=== PATIENT | male | born 1975 | race American Indian/Alaskan Native ===

== ENCOUNTER 2020-08-15 10:13 | Inpatient (IN) | payer OTHER, SELFPAY ==
[2020-08-15] MEDS ORDERED: ALBUTEROL 2.5 MG/3 ML NEBU IH ONE ×5 (10:37→14:20)
[2020-08-15] MEDS ORDERED: IPRATROPIUM 0.02% NEBU 2.5 ML IH ONE (10:37)
[2020-08-15] MEDS ORDERED: dexAMETHasone 20 MG/5 ML VIAL IV ONE (10:37)
[2020-08-15] MEDS ORDERED: MAGNESIUM SULFATE 2 GM/50 ML BAG IV ONE (10:37)
--- NOTE | 2020-08-15 10:42 | Emergency Department Report ---
ED Shortness of Breath HPI - General Chief Complaint: Adult Asthma Stated Complaint: CHEST CONGESTION/FLU SX Time Seen by Provider: 08/15/20 10:37 Source: patient, EMS Mode of arrival: Wheelchair Limitations: No Limitations - History of Present Illness Initial Comments: The patient was evaluated in the emergency department for symptoms described in the history of present illness. He/she was evaluated in the context of the global COVID-19 pandemic, which necessitated consideration that the patient might be at risk for infection with the virus that causes COVID-19. Institutional protocols and algorithms that pertain to the evaluation of patients at risk for COVID-19 are in a state of rapid change based on information released by regulatory bodies including the CDC and federal and state organizations. These policies and algorithms were followed during the patient's care in the emergency department. Please note that these policies, procedures and recommendations changed on a rapid basis. 44-year-old -Slovenian male presents to the emergency room complaining of a sore throat for 4 days. Patient states that he has tried nidp-fqb-[id number] TheraFlu and Cheli-[place] plus with no relief. He does admit to fever decreased appetite nausea vomiting and a mild upset stomach. Patient states he has decreased appetite. Denies any sick contact. Denies any chest pain shortness of breathing headache. Patient denies any past medical history takes no medications on a daily basis and has no known drug allergies. Patient reports he has been hospitalized for his asthma. He also endorsed that he had had an arrhythmia at his last hospital visit and was reported had fluid around his heart per patient. MD Complaint: shortness of breath, cough, "asthma attack" Onset/Timin -: days(s) Improves With: nothing Worsens With: lying flat Known History Of: asthma Associated Symptoms: cough, sputum production Treatments Prior to Arrival: bronchodilator - Related Data Home Oxygen Therapy: No Allergies Allergy/AdvReac Type Severity Reaction Status Date / Time shellfish derived Allergy Itching Verified 08/15/20 14:26 ED Review of Systems ROS: Stated complaint: CHEST CONGESTION/FLU SX Other details as noted in HPI Comment: All other systems reviewed and negative ED Past Medical Hx - Past Medical History Previous Medical History?: Yes Hx Asthma: Yes - Surgical History Past Surgical History?: No - Social History Smoking Status: Current Every Day Smoker Substance Use Type: Alcohol ED Physical Exam - General Limitations: No Limitations General appearance: alert, in distress - Head Head exam: Present: atraumatic, normocephalic - Eye Eye exam: Present: normal appearance - ENT ENT exam: Present: mucous membranes moist - Neck Neck exam: Present: normal inspection, full ROM - Respiratory Respiratory exam: Present: respiratory distress, rhonchi, accessory muscle use - Cardiovascular Cardiovascular Exam: Present: regular rate - GI/Abdominal GI/Abdominal exam: Present: soft. Absent: distended, tenderness - Extremities Exam Extremities exam: Present: full ROM - Back Exam Back exam: Present: full ROM - Neurological Exam Neurological exam: Present: alert, oriented X3, normal gait - Psychiatric Psychiatric exam: Present: normal affect, normal mood - Skin Skin exam: Present: warm, dry, intact, normal color. Absent: rash ED Course Vital Signs 08/15/20 10:30 Temperature 98.0 F Pulse Rate 97 H Respiratory 20 Rate Blood Pressure 115/78 O2 Sat by Pulse 97 Oximetry - Reevaluation(s) Reevaluation #1: 08/15/20 12:02 Dr. Enrico Carpenter came to evaluate patient. He recommends another 7.5 mg of albuterol and admission. Spoke to Dr. Sosa hospitalist is aware of admission request. ED Medical Decision Making - Lab Data Result diagrams: 08/15/20 12:09 08/15/20 12:09 - Radiology Data Radiology results: report reviewed [facility] [address] [place] [address] XRay Report Signed Patient: BELINDA DELANEY MR#: [id number] 2 : 1975 Acct:[id number] Age/Sex: 44 / M ADM Date: 08/15/20 Loc: ED Attending Dr: Ordering Physician: ABHINAV STONE Date of Service: 08/15/20 Procedure(s): XR chest 1V ap Accession Number(s): [id number] cc: ABHINAV STONE Fluoro Time In Minutes: XR chest 1V ap INDICATION / CLINICAL INFORMATION: sob COMPARISON: None available. FINDINGS: SUPPORT DEVICES: None. HEART / MEDIASTINUM: No significant abnormality. LUNGS / PLEURA: Lungs are clear. Costophrenic sulci are sharp. No pneumothorax. ADDITIONAL FINDINGS: No significant additional findings. IMPRESSION: 1. No acute findings. Signer Name: Atul Chou MD Signed: 08/15/2020 11:31 AM Workstation Name: [id number] Transcribed By: CS Dictated By: Atul Chou MD Electronically Authenticated By: Atul Chou MD Signed Date/Time: 08/15/201130 DD/ 30 TD/TT: - Medical Decision Making 44-year-old -Slovenian male presents to the emergency room complaining of a sore throat for 4 days. Patient states that he has tried vbsh-eqe-[id number] TheraFlu and Cheli-[place] plus with no relief. He does admit to fever decreased appetite nausea vomiting and a mild upset stomach. Patient states he has decreased appetite. Denies any sick contact. Denies any chest pain shortness of breathing headache. Patient denies any past medical history takes no medications on a daily basis and has no known drug allergies. Patient reports he has been hospitalized for his asthma. He also endorsed that he had had an arrhythmia at his last hospital visit and was reported had fluid around his heart per patient. Patient was brought directly back from triage placed in room 35 initial orders were albuterol 7.5 mg inhalation, Atrovent 1 mg inhalation, normal saline 1 L magnesium 2 mg dexamethasone 10 mg IV and chest x-ray was ordered. This provider reevaluated patient he still sounds rhonchorous and wheezing still appears to be in distress. Inform Dr. Carpenter ER attending of my concerns he came over immediately evaluated patient reports to give him another 7.5 mg of albuterol and admit the patient for evaluation and continuous treatment. Spoke to Dr. Carroll informed him of my admission. Critical care attestation.: If time is entered above; I have spent that time in minutes in the direct care of this critically ill patient, excluding procedure time. ED Disposition Clinical Impression: Asthma exacerbation Disposition: OP ADMIT IP TO THIS HOSP Is pt being admited?: Yes Does the pt Need Aspirin: Yes Condition: Stable Instructions: Asthma (ED)
--- NOTE | 2020-08-15 11:36 | XRay Report ---
XR chest 1V ap INDICATION / CLINICAL INFORMATION: sob COMPARISON: None available. FINDINGS: SUPPORT DEVICES: None. HEART / MEDIASTINUM: No significant abnormality. LUNGS / PLEURA: Lungs are clear. Costophrenic sulci are sharp. No pneumothorax. ADDITIONAL FINDINGS: No significant additional findings. IMPRESSION: 1. No acute findings. Signer Name: Atul Chou MD Signed: 08/15/2020 11:31 AM Workstation Name: [id number]
--- NOTE | 2020-08-15 12:01 | Event Note ---
Face to Face: For this encounter I have reviewed the PA/ATTENDANT [employer] documentation, treatment plan, medical decision making, and I had face to face time with this patient. Patient is a 44-year-old F Irish male with a history of asthma who is presenting with cough shortness of breath. Chest x-ray is within normal limits however after hour-long neb treatment with steroid and magnesium patient still in some mild respiratory distress. Patient is continued to wheeze patient appears to warrant admission to the hospital
[2020-08-15 12:32] LABS: Basophils # (Auto) 0.1 K/mm3 (0.0-0.1); Basophils % (Auto) 0.6 % (0.0-1.8); Eosinophils # (Auto) 0.2 K/mm3 (0.0-0.4); Eosinophils % (Auto) 1.9 % (0.0-4.3); Hematocrit 39.2 % (35.5-45.6); Hemoglobin 13.6 gm/dl (11.8-15.2); Lymphocytes # (Auto) 1.8 K/mm3 (1.2-5.4); Lymphocytes % (Auto) 14.3 % (13.4-35.0); Mean Corpuscular HGB Conc 35 % (32-34); Mean Corpuscular Volume 81 fl (84-94); Monocytes # (Auto) 0.6 K/mm3 (0.0-0.8); Platelet Count 264 K/mm3 (140-440); Red Blood Count 4.83 M/mm3 (3.65-5.03); Red Cell Distribution Width 14.3 % (13.2-15.2)
[2020-08-15 13:02] LABS: BUN/Creatinine Ratio 11; Blood Urea Nitrogen 9 mg/dL (9-20); Calcium 9.1 mg/dL (8.4-10.2); Hemolysis Index 3
[2020-08-15] MEDS ORDERED: ASPIRIN 81 MG TAB CHEW PO ONE (15:17)
--- NOTE | 2020-08-15 23:02 | History and Physical Report ---
History of Present Illness Date of examination: 08/15/20 Date of admission: 08/15/20 15:44 Chief complaint: Shortness of breath and wheezing for 4 days History of present illness: 44-year-old -[place] male with history of asthma comes in for sore throat of 4 days duration. Patient developed [id number] TheraFlu and Cheli-[place] with no relief. Patient also had a fever and decreased appetite nausea vomiting and epigastric discomfort. Patient also comes in for increasing shortness of breath and wheezing not responding to inhalers and bronchodilators. Continues to have a lot of wheezing. In the emergency room patient was initially hypoxic patient was given multiple nebulizer treatments and IV magnesium and IV steroids with no relief. Hence patient being admitted to the hospital for observation status. No exposure to coronavirus. - Past Medical History Previous Medical History?: Yes -- Asthma: Yes - Surgical History Past Surgical History?: No - Social History Smoking Status: Current Every Day Smoker Substance Use Type: Alcohol Family history Htn Review of Systems ROS: Constitutional no weight loss or weight gain no fever or chills HEENT sore throat for 4 days and fever Neck no neck stiffness no lymph gland enlargement Chest and lungs chest congestion and wheezing for 4 days CVS no chest pain no diaphoresis no palpitations GI no nausea no vomiting no diarrhea Genitourinary system no dysuria no flank pain Musculoskeletal system no muscle pains no joint pains [employer] no syncope no seizures Skin no rash no itching Psychiatric no depression no homicidal or suicidal tendencies Hematologic no lymphedema or bruising Endocrine no polydipsia no polyuria no cold intolerance no heat intolerance Medications and Allergies Allergies Allergy/AdvReac Type Severity Reaction Status Date / Time shellfish derived Allergy Itching Verified 08/15/20 14:26 Home Medications Medication Instructions Recorded Confirmed Last Taken Type No Known Home Medications [No 08/15/20 08/15/20 Unknown History Reported Home Medications] Exam - Constitutional Vitals: Temp Pulse Resp BP Pulse Ox 98.2 F 88 20 122/76 97 08/15/20 15:46 08/15/20 15:46 08/15/20 15:47 08/15/20 15:46 08/15/20 15:47 General appearance: Present: severe distress, well-nourished - EENT Eyes: Present: PERRL ENT: hearing intact, clear oral mucosa - Neck Neck: Present: supple, normal ROM - Respiratory Respiratory effort: normal Respiratory: bilateral: diminished, rhonchi, wheezing - Cardiovascular Rhythm: regular Heart Sounds: Present: S1 & S2. Absent: rub, click - Extremities Extremities: pulses symmetrical, No edema Peripheral Pulses: within normal limits - Abdominal General gastrointestinal: Present: soft, non-tender, non-distended, normal bowel sounds Male genitourinary: Present: normal - Rectal Rectal Exam: deferred - Integumentary Integumentary: Present: clear, warm, dry - Musculoskeletal Musculoskeletal: gait normal, strength equal bilaterally - Psychiatric Psychiatric: appropriate mood/affect, intact judgment & insight - Neurologic Neurologic: CNII-XII intact, moves all extremities - Allied Health Allied health notes reviewed: nursing, case management HEART Score - HEART Score History: Slightly suspicious EKG: Non-specific Age: < 45 Risk factors: No known risk factors Troponin: < normal limit HEART Score: 1 - Critical Actions Critical Actions: 0-3 pts:0.9-1.7%risk of adverse cardiac event.Candidate for discharge Results - Labs CBC & Chem 7: 08/15/20 12:09 08/15/20 12:09 Labs: Laboratory Last Values WBC 12.5 K/mm3 (4.5-11.0) H 08/15/20 12:09 RBC 4.83 M/mm3 (3.65-5.03) 08/15/20 12:09 Hgb 13.6 gm/dl (11.8-15.2) 08/15/20 12:09 Hct 39.2 % (35.5-45.6) 08/15/20 12:09 MCV 81 fl (84-94) L 08/15/20 12:09 MCH 28 pg (28-32) 08/15/20 12:09 MCHC 35 % (32-34) H 08/15/20 12:09 RDW 14.3 % (13.2-15.2) 08/15/20 12:09 Plt Count 264 K/mm3 (140-440) 08/15/20 12:09 Lymph % (Auto) 14.3 % (13.4-35.0) 08/15/20 12:09 [place] % (Auto) 5.0 % (0.0-7.3) 08/15/20 12:09 Eos % (Auto) 1.9 % (0.0-4.3) 08/15/20 12:09 Baso % (Auto) 0.6 % (0.0-1.8) 08/15/20 12:09 Lymph # (Auto) 1.8 K/mm3 (1.2-5.4) 08/15/20 12:09 [place] # (Auto) 0.6 K/mm3 (0.0-0.8) 08/15/20 12:09 Eos # (Auto) 0.2 K/mm3 (0.0-0.4) 08/15/20 12:09 Baso # (Auto) 0.1 K/mm3 (0.0-0.1) 08/15/20 12:09 Seg Neutrophils % 78.2 % (40.0-70.0) H 08/15/20 12:09 Seg Neutrophils # 9.8 K/mm3 (1.8-7.7) H 08/15/20 12:09 D-Dimer < 135 ng/mlDDU (0-234) 08/15/20 12:09 Sodium 137 mmol/L (137-145) 08/15/20 12:09 Potassium 4.0 mmol/L (3.6-5.0) 08/15/20 12:09 Chloride 97.8 mmol/L (98-107) L 08/15/20 12:09 Carbon Dioxide 26 mmol/L (22-30) 08/15/20 12:09 Anion Gap 17 mmol/L 08/15/20 12:09 BUN 9 mg/dL (9-20) 08/15/20 12:09 Creatinine 0.8 mg/dL (0.8-1.3) 08/15/20 12:09 Estimated GFR > 60 ml/min 08/15/20 12:09 BUN/Creatinine Ratio 11 % 08/15/20 12:09 Glucose 86 mg/dL (75-100) 08/15/20 12:09 Calcium 9.1 mg/dL (8.4-10.2) 08/15/20 12:09 Ferritin 83.0 ng/mL (30.0-300.0) 08/15/20 12:09 Lactate Dehydrogenase 140 units/L (91-180) 08/15/20 12:09 C-Reactive Protein 1.40 mg/dL (0.00-1.30) H 08/15/20 12:09 Procalcitonin < 0.05 ng/mL (<0.15) 08/15/20 12:09 - Imaging and Cardiology Chest x-ray: report reviewed (No acute findings) Rogers/IV: IV Catheter Type [Left INT / Saline Lock Antecubital] Assessment and Plan Advance Directives: Yes Plan of care discussed with patient/family: Yes (Full code) - Patient Problems (1) Acute respiratory failure with hypoxia Current Visit: Yes Status: Acute Plan to address problem: Continue BiPAP and nasal cannula oxygen as necessary Intubated necessary Duo nebs [id number] and every 3 as needed IV Solu-Medrol at 60 mg daily 8 hours Pulmicort inhalations twice a day Pulmonary consult if necessary IV Levaquin as empiric antibiotics Coronavirus to be screened (2) Asthma exacerbation Current Visit: Yes Status: Acute Qualifiers: Asthma severity: severe Plan to address problem: Continue IV Solu-Medrol, IV Levaquin and nebulizer treatments [id number] and every 3 as needed BiPAP as necessary Intubate if necessary (3) DVT prophylaxis Current Visit: Yes Status: Acute Plan to address problem: On Lovenox and GI prophylaxis
[2020-08-15] MEDS ORDERED: ACETAMINOPHEN 325 MG TAB PO PRN (23:05)
[2020-08-15] MEDS ORDERED: ONDANSETRON 4 MG/2 ML INJ IV PRN (23:05)
[2020-08-15] MEDS ORDERED: HYDROmorphone 1 MG/1 ML INJ IV PRN (23:05)
[2020-08-15] MEDS ORDERED: IPRATROPIUM/ALBUTEROL SULFATE 3 ML AMPUL.NEB IH PRN (23:07)
[2020-08-15] MEDS ORDERED: ALBUTEROL 2.5 MG/3 ML NEBU IH PRN (23:16)
[2020-08-16] MEDS: BUDESONIDE 0.5 MG/2 ML NEBU IH SCH ×3 (00:27→21:03)
[2020-08-16] MEDS: methylPREDNISolone Sod Succinate 125 MG/2 ML INJ IV SCH ×4 (01:42→21:45)
[2020-08-16] MEDS: FAMOTIDINE 20 MG/2 ML INJ IV SCH ×3 (01:42→21:45)
--- NOTE | 2020-08-16 07:44 | Progress Note ---
Subjective Date of service: 08/16/20 Interval history: Shortness of breath and wheezing for 4 days History of present illness: 44-year-old -Citizen Of [place] male with history of asthma comes in for sore throat of 4 days duration. Patient tried funq-dok-xvpupar TheraFlu and Cheli[place] with no relief. Patient also had a fever and decreased appetite nausea vomiting and epigastric discomfort. Patient also comes in for increasing shortness of breath and wheezing not responding to inhalers and bronchodilators. Continues to have a lot of wheezing. In the emergency room patient was initial ly hypoxic patient was given multiple nebulizer treatments and IV magnesium and IV steroids with no relief. Hence patient being admitted to the hospital for observation status. No exposure to coronavirus. 08/16 patient is ill looking, mildly short of breath, he denies any chest pain. Denies nausea or abdominal pain or dysuria. Lab results reviewed. Chest x-ray reviewed Assessment and plan Acute asthma exacerbation Continues to have bilateral scattered rhonchi and he is mildly short of breath Continue aggressive neb treatments Add arformoterol via nebulizer Change DuoNeb solution to every 4 hours Decrease IV steroids to 40 mg every 8 hours Chest x-ray reviewed We will discontinue levofloxacin (to avoid tendon rupture as the patient is also on steroids) and start the patient on ceftriaxone x3 days Acute hypoxic respiratory failure Secondary to #1 Continue oxygen via nasal cannula O2 saturation is greater than 96% Covid test ordered and performed this morning Results pending D-dimer, CRP, LDH and ferritin are in the normal range Chest x-ray shows no acute infiltrates Leukocytosis Likely reactive Improved Tobacco abuse Smoking cessation counseling was done Objective - Constitutional Vitals: Vital Signs - 12hr 08/15/20 08/16/20 21:08 05:36 Temperature 98.6 F Pulse Rate 97 H 93 H Respiratory 18 Rate Blood Pressure 115/80 148/86 O2 Sat by Pulse 97 96 Oximetry General appearance: Present: no acute distress - EENT Eyes: PERRL, EOM intact ENT: hearing intact, clear oral mucosa - Neck Neck: supple, normal ROM, no masses or JVD - Respiratory Respiratory effort: normal Respiratory: bilateral: diminished, rhonchi - Cardiovascular Rhythm: regular Heart Sounds: Present: S1 & S2 Extremities: No edema - Gastrointestinal General gastrointestinal: Present: soft, non-tender. Absent: hepatomegaly, splenomegaly Rectal Exam: deferred - Genitourinary Male genitourinary: deferred - Integumentary Integumentary: clear - Musculoskeletal Musculoskeletal: strength equal bilaterally - Neurologic Neurologic: no focal deficits - Psychiatric Psychiatric: appropriate mood/affect - Labs CBC & Chem 7: 08/16/20 10:08 08/16/20 10:08 Labs: Abnormal lab results 08/15/20 08/15/20 Range/Units 12:09 12:09 WBC 12.5 H (4.5-11.0) K/mm3 MCV 81 L (84-94) fl MCHC 35 H (32-34) % Seg Neutrophils % 78.2 H (40.0-70.0) % Seg Neutrophils # 9.8 H (1.8-7.7) K/mm3 Chloride 97.8 L (98-107) mmol/L C-Reactive Protein 1.40 H (0.00-1.30) mg/dL HEART Score - HEART Score EKG: Non-specific Age: < 45 Risk factors: No known risk factors Troponin: < normal limit - Critical Actions Critical Actions: 0-3 pts:0.9-1.7%risk of adverse cardiac event.Candidate for discharge
[2020-08-16] MEDS ORDERED: IPRATROPIUM/ALBUTEROL SULFATE 3 ML AMPUL.NEB IH SCH (08:00)
[2020-08-16 10:53] LABS: Basophils % (Auto) 0.1 % (0.0-1.8); Eosinophils % (Auto) 0.1 % (0.0-4.3); Hematocrit 44.5 % (35.5-45.6); Hemoglobin 14.5 gm/dl (11.8-15.2); Lymphocytes # (Auto) 1.5 K/mm3 (1.2-5.4); Lymphocytes % (Auto) 14.7 % (13.4-35.0); Mean Corpuscular HGB Conc 33 % (32-34); Mean Corpuscular Volume 83 fl (84-94); Monocytes # (Auto) 0.2 K/mm3 (0.0-0.8); Monocytes % (Auto) 1.7 % (0.0-7.3); Platelet Count 303 K/mm3 (140-440); Red Blood Count 5.35 M/mm3 (3.65-5.03); Red Cell Distribution Width 14.6 % (13.2-15.2)
[2020-08-16 11:09] LABS: Alanine Aminotransferase 15 units/L (7-56); Albumin 4.6 g/dL (3.9-5); BUN/Creatinine Ratio 16; Blood Urea Nitrogen 16 mg/dL (9-20); Calcium 9.9 mg/dL (8.4-10.2); Hemolysis Index 28
[2020-08-16] MEDS: IPRATROPIUM/ALBUTEROL SULFATE 3 ML AMPUL.NEB IH SCH ×4 (12:21→21:03)
[2020-08-16] MEDS: ENOXAPARIN 40 MG/0.4 ML INJ SUB-Q SCH (21:44)
[2020-08-17] MEDS: IPRATROPIUM/ALBUTEROL SULFATE 3 ML AMPUL.NEB IH SCH ×6 (00:34→21:12)
[2020-08-17] MEDS: methylPREDNISolone Sod Succinate 125 MG/2 ML INJ IV SCH ×3 (06:18→21:51)
[2020-08-17] MEDS: BUDESONIDE 0.5 MG/2 ML NEBU IH SCH ×2 (09:16→21:12)
[2020-08-17] MEDS: guaiFENesin DM 200/20 MG ORAL LIQD 10 ML PO SCH ×3 (10:52→23:08)
[2020-08-17] MEDS: MONTELUKAST 10 MG TAB PO SCH (10:55)
[2020-08-17] MEDS: cefTRIAXone/NS 1 GM/50 ML 1 GM/50 ML BAG IV SCH (10:55)
[2020-08-17] MEDS: FAMOTIDINE 20 MG/2 ML INJ IV SCH (10:56)
[2020-08-17] MEDS ORDERED: BUDESONIDE 0.5 MG/2 ML NEBU IH SCH (11:00)
[2020-08-17] MEDS ORDERED: MONTELUKAST 10 MG TAB PO SCH (11:00)
[2020-08-17] MEDS: ARFORMOTEROL 15 MCG/2 ML NEBU IH SCH ×2 (11:56→21:13)
--- NOTE | 2020-08-17 12:43 | Consultation ---
History of Present Illness Consult date: 08/17/20 Consult reason: shortness of breath, other (Abnormal ECG) History of present illness: Patient is a 44-year-old man admitted to the hospital 2 days ago with complaints of shortness of breath, cough and wheezing. His symptoms have been attributed to exacerbation of his chronic asthma. Today, an ECG was done ostensibly due to his persistent symptoms, and cardiac consultation was requested for the abnormalities on the ECG. There is a sinus rhythm at 99, with diffuse concave appearance ST elevation in all the leads except aVR. ECG has the appearance of acute pericarditis. The patient is afebrile, comfortable in his room on the medical floor, but is actively coughing. He denies chest pain, except when he coughs. There are no palpitations, no lower extremity edema. He has no prior cardiac history. Chest x-ray done on this presentation revealed underlying prominence and cardiac silhouette, but otherwise clear lungs with no infiltrate and no edema. COVID-19 test was negative. Past History Past Medical History: other (Asthma) Medications and Allergies Allergies Allergy/AdvReac Type Severity Reaction Status Date / Time shellfish derived Allergy Itching Verified 08/15/20 14:26 Home Medications Medication Instructions Recorded Confirmed Last Taken Type No Known Home Medications [No 08/15/20 08/15/20 Unknown History Reported Home Medications] Active Meds: Active Medications Acetaminophen (Tylenol) 650 mg PO Q4H PRN PRN Reason: Pain MILD(1-3)/Fever >100.5/NAIR Albuterol (Proventil) 2.5 mg IH Q3HRT PRN PRN Reason: Wheezing Albuterol/Ipratropium (Duoneb *Not For Prn Use*) 1 ampul IH Q4H [facility] Last Admin: 08/17/20 12:30 Dose: 1 ampul Documented by: Arformoterol Tartrate (Brovana Nebu) 15 mcg IH Q12HRT [facility] Last Admin: 08/17/20 11:56 Dose: Not Given Documented by: Budesonide (Pulmicort) 0.5 mg IH Q12HRT [facility] Last Admin: 08/17/20 09:16 Dose: 0.5 mg Documented by: Enoxaparin Sodium (Enoxaparin) 40 mg SUB-Q QDAY@2200 GIULIANA; Protocol Last Admin: 08/16/20 21:44 Dose: 40 mg Documented by: Famotidine (Pepcid) 20 mg PO BID [facility] Guaifenesin (Guaifenesin Dm Syrup) 10 ml PO Q6HR [facility] Last Admin: 08/17/20 10:52 Dose: 10 ml Documented by: Hydromorphone HCl (Dilaudid) 0.5 mg IV Q3H PRN PRN Reason: Pain , Severe (7-10) Ceftriaxone Sodium (Rocephin/Ns 1 Gm/50 Ml) 1 gm in 50 mls @ 100 mls/hr IV Q24HR [facility]; Protocol Stop: 08/19/20 12:00 Last Admin: 08/17/20 10:55 Dose: 100 mls/hr Documented by: Methylprednisolone Sodium Succinate (Solu-Medrol) 40 mg IV Q8HR [facility] Last Admin: 08/17/20 06:18 Dose: 40 mg Documented by: Montelukast Sodium (Singulair) 10 mg PO QPM [facility] Last Admin: 08/17/20 10:55 Dose: 10 mg Documented by: Ondansetron HCl (Zofran) 4 mg IV Q3H PRN PRN Reason: Nausea And Vomiting Oxycodone/Acetaminophen (Percocet 5/325) 1 tab PO Q6H PRN PRN Reason: Pain, Moderate (4-6) Sodium Chloride (Sodium Chloride Flush Syringe 10 Ml) 10 ml IV BID [facility] Last Admin: 08/17/20 10:56 Dose: 10 ml Documented by: Sodium Chloride (Sodium Chloride Flush Syringe 10 Ml) 10 ml IV PRN PRN PRN Reason: LINE FLUSH Review of Systems Cardiovascular: chest pain, shortness of breath, no orthopnea, no palpitations, no rapid/irregular heart beat, no edema, no syncope, no lightheadedness Respiratory: cough Physical Examination Vital Signs Temp Pulse Resp BP Pulse Ox 98.0 F 97 H 20 115/78 97 08/15/20 10:30 08/15/20 10:30 08/15/20 10:30 08/15/20 10:30 08/15/20 10:30 General appearance: no acute distress HEENT: Positive: PERRL Neck: Positive: neck supple Cardiac: Positive: Reg Rate and Rhythm Lungs: Positive: Decreased Breath Sounds Neuro: Positive: Grossly Intact Abdomen: Positive: Soft Male genitourinary: Positive: deferred Skin: Positive: Clear Extremities: Absent: edema Results 08/16/20 10:08 08/16/20 10:08 EKG interpretations - Telemetry EKG Rhythm: Sinus Rhythm Assessment and Plan - Patient Problems (1) Acute pericarditis Current Visit: Yes Status: Acute Plan to address problem: Patient has symptoms of shortness of breath, cough, bronchitis and asthma exacerbation. ECG today is very suspicious for findings of acute pericarditis. In addition to administration of NSAIDs, we will obtain an echocardiogram for left ventricular function assessment.
--- NOTE | 2020-08-17 15:45 | Progress Note ---
Subjective Date of service: 08/17/20 Interval history: Shortness of breath and wheezing for 4 days History of present illness: 44-year-old -Nigerien male with history of asthma comes in for sore throat of 4 days duration. Patient tried [id number] TheraFlu and Cheli- [place] with no relief. Patient also had a fever and decreased appetite nausea vomiting and epigastric discomfort. Patient also comes in for increasing shortness of breath and wheezing not responding to inhalers and bronchodilators. Continues to have a lot of wheezing. In the emergency room patient was initial ly hypoxic patient was given multiple nebulizer treatments and IV magnesium and IV steroids with no relief. Hence patient being admitted to the hospital for observation status. No exposure to coronavirus. 08/16 patient is ill looking, mildly short of breath, he denies any chest pain. Denies nausea or abdominal pain or dysuria. Lab results reviewed. Chest x-ray reviewed 08/17 patient is actively coughing and mildly short of breath and wheezing. His oxygen saturation on room air was 96% Cardiology consulted due to abnormal EKG and patient is suspected of having acute pericarditis Assessment and plan Acute asthma exacerbation-severe Continues to have bilateral expiratory rhonchi and he is mildly short of breath Continue aggressive neb treatments with arformoterol, budesonide and DuoNeb solution via nebulizer Continue IV steroids to 40 mg every 8 hours And montelukast Chest x-ray reviewed Continue ceftriaxone x3 days Acute hypoxic respiratory failure Secondary to #1 Continue oxygen via nasal cannula O2 saturation is greater than 96% on room air Covid test ordered and performed and is negative for Covid 19 virus D-dimer, CRP, LDH and ferritin are in the normal range Chest x-ray shows no acute infiltrates Leukocytosis Likely reactive Improved Tobacco abuse Smoking cessation counseling was done DVT prophylaxis; heparin subcu Not ready for discharge Objective - Constitutional Vitals: Vital Signs - 12hr 08/17/20 08/17/20 08/17/20 04:27 09:16 12:30 Temperature 98.1 F Pulse Rate 88 Pulse Rate [ 111 H 96 H Bilateral Throughout] Respiratory 16 Rate Respiratory 20 20 Rate [Bilateral Throughout] Blood Pressure 111/81 O2 Sat by Pulse 96 Oximetry 08/17/20 08/17/20 13:38 13:40 Temperature 98.6 F 98.6 F Pulse Rate 110 H 106 H Pulse Rate [ Bilateral Throughout] Respiratory 20 20 Rate Respiratory Rate [Bilateral Throughout] Blood Pressure 163/94 141/73 O2 Sat by Pulse 95 95 Oximetry General appearance: Present: mild distress - EENT Eyes: PERRL, EOM intact ENT: hearing intact, clear oral mucosa - Neck Neck: supple, normal ROM, no masses or JVD - Respiratory Respiratory: bilateral: rhonchi, wheezing - Cardiovascular Rhythm: regular Heart Sounds: Present: S1 & S2 Extremities: No edema - Gastrointestinal General gastrointestinal: Present: soft, non-tender Rectal Exam: deferred - Genitourinary Male genitourinary: deferred - Musculoskeletal Musculoskeletal: strength equal bilaterally - Neurologic Neurologic: no focal deficits, moves all extremities - Psychiatric Psychiatric: appropriate mood/affect - Labs CBC & Chem 7: 08/16/20 10:08 08/16/20 10:08 HEART Score - HEART Score EKG: Non-specific Age: < 45 Risk factors: No known risk factors Troponin: < normal limit - Critical Actions Critical Actions: 0-3 pts:0.9-1.7%risk of adverse cardiac event.Candidate for discharge
[2020-08-17] MEDS: INDOMETHACIN 25 MG CAP PO SCH ×2 (18:10→21:26)
[2020-08-17] MEDS: FAMOTIDINE 20 MG TAB PO SCH (21:26)
[2020-08-17] MEDS: ENOXAPARIN 40 MG/0.4 ML INJ SUB-Q SCH (21:26)
[2020-08-17] MEDS: oxyCODONE /ACETAMINOPHEN 5-325MG TAB PO PRN (21:27)
[2020-08-17] MEDS: ZOLPIDEM 5 MG TAB PO PRN (21:27)
[2020-08-18] MEDS ORDERED: methylPREDNISolone Sod Succinate 125 MG/2 ML INJ ONE ×2 (05:30→13:30)
[2020-08-18] MEDS ORDERED: ARFORMOTEROL 15 MCG/2 ML NEBU IH ONE (09:00)
[2020-08-18] MEDS ORDERED: BUDESONIDE 0.5 MG/2 ML NEBU IH ONE (09:00)
[2020-08-18] MEDS: ARFORMOTEROL 15 MCG/2 ML NEBU IH SCH ×2 (09:15→20:45)
[2020-08-18] MEDS: BUDESONIDE 0.5 MG/2 ML NEBU IH SCH ×2 (09:15→20:42)
[2020-08-18] MEDS ORDERED: guaiFENesin DM 200/20 MG ORAL LIQD 10 ML ONE (13:30)
[2020-08-18] MEDS ORDERED: MONTELUKAST 10 MG TAB ONE (13:30)
[2020-08-18] MEDS ORDERED: cefTRIAXone/NS 1 GM/50 ML IVPB IV ONE (13:30)
[2020-08-18] MEDS ORDERED: HYDROcodone/ACETAMINOPHEN 5-325 MG TAB ONE (13:30)
[2020-08-18] MEDS ORDERED: FAMOTIDINE 20 MG TAB ONE (13:30)
[2020-08-18] MEDS ORDERED: INDOMETHACIN 25 MG CAP ONE (13:30)
[2020-08-18] MEDS: IPRATROPIUM/ALBUTEROL SULFATE 3 ML AMPUL.NEB IH SCH ×6 (17:39→20:45)
--- NOTE | 2020-08-18 18:03 | Progress Note ---
Assessment and Plan - Patient Problems (1) Acute pericarditis Current Visit: Yes Status: Acute Plan to address problem: Patient has symptoms of shortness of breath, cough, bronchitis and asthma exacerbation. ECG is very suspicious for findings of acute pericarditis. Patient has been started on NSAIDs. Echocardiogram shows normal left ventricular systolic function, ejection fraction 60 to 65%, with a trivial degree of pericardial effusion. Subjective Date of service: 08/18/20 Interval history: No new cardiac complaints, patient continues to experience cough. Objective Vital Signs Temp Pulse Pulse Resp Resp BP Pulse Ox 08/18/20 08:00 106 H 17 08/17/20 22:37 98.5 F 84 18 143/84 96 08/17/20 20:00 88 16 08/17/20 18:25 98.5 F 105 H 20 159/94 97 - Physical Examination HEENT: Positive: PERRL Neck: Positive: neck supple Cardiac: Positive: Reg Rate and Rhythm Lungs: Positive: Decreased Breath Sounds Neuro: Positive: Grossly Intact Abdomen: Positive: Soft Skin: Positive: Clear Extremities: Absent: edema
[2020-08-18] MEDS: oxyCODONE /ACETAMINOPHEN 5-325MG TAB PO PRN ×2 (18:14→22:47)
[2020-08-18] MEDS: guaiFENesin DM 200/20 MG ORAL LIQD 10 ML PO SCH ×2 (18:32→18:33)
[2020-08-18] MEDS: INDOMETHACIN 25 MG CAP PO SCH ×2 (18:32→22:47)
[2020-08-18] MEDS: cefTRIAXone/NS 1 GM/50 ML 1 GM/50 ML BAG IV SCH (18:32)
[2020-08-18] MEDS: MONTELUKAST 10 MG TAB PO SCH (18:33)
[2020-08-18] MEDS: methylPREDNISolone Sod Succinate 125 MG/2 ML INJ IV SCH ×2 (18:33→22:46)
[2020-08-18] MEDS: FAMOTIDINE 20 MG TAB PO SCH ×2 (18:33→22:46)
--- NOTE | 2020-08-18 21:40 | Progress Note ---
Assessment and Plan 44-year-old -[place] male with history of asthma comes in for sore throat of 4 days duration. Patient tried [id number] TheraFlu and Cheli- [place] with no relief. Patient also had a fever and decreased appetite nausea vomiting and epigastric discomfort. Patient also comes in for increasing shortness of breath and wheezing not responding to inhalers and bronchodilators. Continues to have a lot of wheezing. In the emergency room patient was initially hypoxic patient was given multiple nebulizer treatments and IV magnes ium and IV steroids with no relief. Hence patient being admitted to the hospital for observation status. No exposure to coronavirus. Daily course: 08/16 patient is ill looking, mildly short of breath, he denies any chest pain. Denies nausea or abdominal pain or dysuria. Lab results reviewed. Chest x-ray reviewed 08/17 patient is actively coughing and mildly short of breath and wheezing. His oxygen saturation on room air was 96% Cardiology consulted due to abnormal EKG and patient is suspected of having acute pericarditis 08/18: Patient clinically improving, still have mild short of breath and wheezing. Noted cardiology commendation, started on NSAID for acute pericarditis. If continue to improve possible discharge tomorrow with outpatient follow-up. Assessment and plan --Acute asthma exacerbation-severe Continues to have bilateral expiratory rhonchi and he is mildly short of breath Continue aggressive neb treatments with arformoterol, budesonide and DuoNeb solution via nebulizer Continue IV steroids to 40 mg every 8 hours And montelukast Chest x-ray reviewed Continue ceftriaxone x3 days --Acute hypoxic respiratory failure Secondary to #1 Continue oxygen via nasal cannula O2 saturation is greater than 96% on room air Covid test ordered and performed and is negative for Covid 19 virus D-dimer, CRP, LDH and ferritin are in the normal range Chest x-ray shows no acute infiltrates --Acute pericarditis Patient has symptoms of shortness of breath, cough, bronchitis and asthma exacerbation. ECG is very suspicious for findings of acute pericarditis. Patient has been started on NSAIDs by cardiology. Echocardiogram shows normal left ventricular systolic function, ejection fraction 60 to 65%, with a trivial degree of pericardial effusion. --Leukocytosis Likely reactive Improved --Tobacco abuse Smoking cessation counseling was done --DVT prophylaxis; heparin subcu Not ready for discharge Subjective Date of service: 08/18/20 Interval history: Patient seen and examined Vitals reviewed Short of breath improved but still has some wheezing Denies any chest pain Objective - Exam Narrative Exam: General appearance: Present: no acute distress - EENT Eyes: PERRL, EOM intact ENT: hearing intact, clear oral mucosa - Neck Neck: supple, normal ROM, no masses or JVD - Respiratory Respiratory effort: normal Respiratory: bilateral: diminished, rhonchi - Cardiovascular Rhythm: regular Heart Sounds: Present: S1 & S2 Extremities: No edema - Gastrointestinal General gastrointestinal: Present: soft, non-tender. Absent: hepatomegaly, splenomegaly Rectal Exam: deferred - Genitourinary Male genitourinary: deferred - Integumentary Integumentary: clear - Musculoskeletal Musculoskeletal: strength equal bilaterally - Neurologic Neurologic: no focal deficits - Psychiatric Psychiatric: appropriate mood/affect - Constitutional Vitals: Vital Signs - 12hr 08/18/20 08/18/20 08/18/20 12:39 18:11 20:45 Temperature 98.1 F 97.9 F Pulse Rate 95 H 82 Pulse Rate [ 77 Bilateral Throughout] Respiratory 19 20 Rate Respiratory 18 Rate [Bilateral Throughout] Blood Pressure 139/78 166/89 O2 Sat by Pulse 96 99 Oximetry - Labs CBC & Chem 7: 08/16/20 10:08 08/16/20 10:08 HEART Score - HEART Score EKG: Non-specific Age: < 45 Risk factors: No known risk factors Troponin: < normal limit - Critical Actions Critical Actions: 0-3 pts:0.9-1.7%risk of adverse cardiac event.Candidate for rosalinda parekh
[2020-08-18] MEDS: ZOLPIDEM 5 MG TAB PO PRN (22:47)
[2020-08-18] MEDS: ENOXAPARIN 40 MG/0.4 ML INJ SUB-Q SCH (22:47)
[2020-08-19] MEDS: guaiFENesin DM 200/20 MG ORAL LIQD 10 ML PO SCH ×3 (00:20→17:18)
[2020-08-19] MEDS: IPRATROPIUM/ALBUTEROL SULFATE 3 ML AMPUL.NEB IH SCH ×4 (01:02→13:02)
[2020-08-19] MEDS: methylPREDNISolone Sod Succinate 125 MG/2 ML INJ IV SCH ×2 (05:18→17:17)
[2020-08-19] MEDS: INDOMETHACIN 25 MG CAP PO SCH ×2 (05:18→17:17)
[2020-08-19] MEDS: BUDESONIDE 0.5 MG/2 ML NEBU IH SCH ×2 (08:08→21:37)
[2020-08-19] MEDS: ARFORMOTEROL 15 MCG/2 ML NEBU IH SCH ×2 (08:08→21:37)
--- NOTE | 2020-08-19 09:31 | Progress Note ---
Assessment and Plan Acute pericarditis Asthma exacerbation negative COVID test An echocardiogram shows a normal left ventricular systolic function, EF 60-65%. Continue NSAIDs as tolerated Subjective Date of service: 08/19/20 Interval history: Still with coughs and wheezing. No distress noted. Objective Vital Signs Temp Pulse Pulse Resp Resp BP Pulse Ox 08/19/20 08:08 88 16 08/19/20 05:08 97.5 F L 81 20 142/88 95 08/19/20 05:00 84 18 08/19/20 01:04 81 18 08/18/20 23:46 97.7 F 78 20 156/98 94 08/18/20 20:45 77 18 08/18/20 18:11 97.9 F 82 20 166/89 99 08/18/20 12:39 98.1 F 95 H 19 139/78 96 - Physical Examination General: No Apparent Distress HEENT: Positive: PERRL Neck: Positive: neck supple Cardiac: Positive: Reg Rate and Rhythm Lungs: Positive: Wheezes Neuro: Positive: Grossly Intact Extremities: Absent: edema
[2020-08-19] MEDS: oxyCODONE /ACETAMINOPHEN 5-325MG TAB PO PRN (09:54)
[2020-08-19] MEDS: FAMOTIDINE 20 MG TAB PO SCH (09:54)
[2020-08-19] MEDS: ZOLPIDEM 5 MG TAB PO PRN (09:54)
[2020-08-19] MEDS: cefTRIAXone/NS 1 GM/50 ML 1 GM/50 ML BAG IV SCH (09:58)
[2020-08-19] MEDS: MONTELUKAST 10 MG TAB PO SCH (17:18)
--- NOTE | 2020-08-19 17:25 | Discharge Summary ---
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 Patient tried [id number] TheraFlu and Cheli- [place] with no relief. Patient also had a fever and decreased appetite nausea vomiting and epigastric discomfort. Patient also comes in for increasing shortness of breath and wheezing not responding to inhalers and bronchodilators. Continues to have a lot of wheezing. In the emergency room patient was initially hypoxic patient was given multiple nebulizer treatments and IV magnesium and IV steroids with no relief. Hence patient was admitted to the hospital for further evaluation and management. Patient denied any exposure to coronavirus. Daily course: 08/16 patient is ill looking, mildly short of breath, he denies any chest pain. Denies nausea or abdominal pain or dysuria. Lab results reviewed. Chest x-ray reviewed 08/17 patient is actively coughing and mildly short of breath and wheezing. His oxygen saturation on room air was 96% Cardiology consulted due to abnormal EKG and patient is suspected of having acute pericarditis 08/18: Patient clinically improving, still have mild short of breath and wheezing. Noted cardiology commendation, started on NSAID for acute pericarditis. If continue to improve possible discharge tomorrow with outpatient follow-up. 08/19: Clinically improved, chest pain better. Cardiology recommended outpatient follow-up. Patient will be discharged home in stable condition and she will follow-up with cardiology in 1 week. Discharge diagnosis and Mx: --Acute asthma exacerbation-severe, improved --Acute hypoxic respiratory failure, resolved --Acute pericarditis Patient has symptoms of shortness of breath, cough, bronchitis and asthma exacerbation. ECG is very suspicious for findings of acute pericarditis. Patient has been started on NSAIDs by cardiology. Echocardiogram shows normal left ventricular systolic function, ejection fraction 60 to 65%, with a trivial degree of pericardial effusion. --Leukocytosis, Likely reactive from pericarditis and acute asthma exacerbation, Improved --Tobacco abuse Smoking cessation counseling was done --DVT prophylaxis; heparin subcu Disposition: [id number] SHRT-TRM GEN HOSP IP Time spent for discharge: 34 minutes Core Measure Documentation - Palliative Care Palliative Care/ Comfort Measures: Not Applicable - Core Measures Any of the following diagnoses?: none Exam - Physical Exam Narrative exam: General appearance: Present: no acute distress - EENT Eyes: PERRL, EOM intact ENT: hearing intact, clear oral mucosa - Neck Neck: supple, normal ROM, no masses or JVD - Respiratory Respiratory effort: normal Respiratory: bilateral: diminished, rhonchi - Cardiovascular Rhythm: regular Heart Sounds: Present: S1 & S2 Extremities: No edema - Gastrointestinal General gastrointestinal: Present: soft, non-tender. Absent: hepatomegaly, splenomegaly Rectal Exam: deferred - Genitourinary Male genitourinary: deferred - Integumentary Integumentary: clear - Musculoskeletal Musculoskeletal: strength equal bilaterally - Neurologic Neurologic: no focal deficits - Psychiatric Psychiatric: appropriate mood/affect - Constitutional Vitals: Temp Pulse Resp BP Pulse Ox 97.9 F 86 16 138/80 96 08/19/20 12:48 08/19/20 13:02 08/19/20 13:02 08/19/20 12:48 08/19/20 12:48 Plan Activity: advance as tolerated Weight Bearing Status: Weight Bear as Tolerated (Number show) Diet: low fat, low salt Follow up with: PRIMARY CARE, [Primary Care Provider] - 3-5 Days Forms: Work/School Release Form Prescriptions: Indomethacin [Indocin] 25 mg PO Q8HR #30 capsule predniSONE 10 mg PO .TAPER #21 tab Albuterol Mdi (or & Nicu Only) [ProAir HFA Inhaler] 2 puff IH QID PRN #8.5 gram PRN Reason: Shortness Of Breath Montelukast [Singulair] 10 mg PO QPM #30 tablet Budesonide/Formoterol Fumarate [Symbicort 160-4.5 Mcg Inhaler] 10.2 gm IH BID #1 vial
[2020-08-19 18:53] VITALS: BP 157/79
[2020-08-19] MEDS ORDERED: IPRATROPIUM/ALBUTEROL SULFATE 3 ML AMPUL.NEB IH SCH (20:00)
== END 2020-08-19 20:26 | disposition home or self-care (01) | DRG 189 ==
LOC: ED 10:13 → 3A 15:44
PROVIDERS: ADMIT Internal Medicine; ATTEND Internal Medicine
DX: J96.01 Acute respiratory failure with hypoxia (principal); J45.901 Unspecified asthma with (acute) exacerbation; I30.9 Acute pericarditis, unspecified; Z20.828 Contact with and (suspected) exposure to other viral communicable diseases; D72.829 Elevated white blood cell count, unspecified; F17.200 Nicotine dependence, unspecified, uncomplicated; Z71.6 Tobacco abuse counseling; Z91.013 Allergy to seafood; Z72.89 Other problems related to lifestyle; Z82.49 Family history of ischemic heart disease and other diseases of the circulatory system
CPT/HCPCS: 36415; 71045; 80048; 80053; 82728; 83520; 83615; 84145; 85025; 85379; 86140; 93005; 93306; 94640; 96374; 96375; G0378; J0696; J1100; J1650; J1956; J2930; J3475; U0003